=== PATIENT | female | born 1995 | race Caucasian/White ===

== ENCOUNTER 2016-11-11 22:53 | Emergency (ER) | payer MEDICAID, OTHER ==
--- NOTE | 2016-11-11 23:44 | EDM.PDOC ---
ED HPI GENERAL MEDICAL PROBLEM - General Chief Complaint: [employer] Problem Stated Complaint: ?labor Time Seen by Provider: 11/11/16 23:38 Source of Information: Reports: Patient History Limitations: Reports: No Limitations - History of Present Illness INITIAL COMMENTS - FREE TEXT/NARRATIVE: PT STATES SHE IS 8 MONTHS WITH DUE DATE OF AND DEVELOPED INTERMITTENT CRAMPING THAT LASTED FEW SECONDS EACH TIME. SEEN AT [facility] IN [place] THIS PAST SATURDAY. ALL PROGRESSING WELL AND NOT HIGH RISK. DENIES VAGINAL WATER OR BLEEDING, DYSURIA, H/O PRE-ECLAMPSIA, OR FEVER. 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 woke up at midnight with large amount vaginal bleeding without clots. Neurological History: Reports: Other (See Below) Other Neuro History: s/p craniotomy, March 2015, for stage 1 tumor Oncologic (Cancer) History: Reports: Brain - Past Surgical History Oncologic Surgical History: Reports: Other (See Below) Social & Family History - Family History Family Medical History: Noncontributory - Tobacco Use Smoking Status *Q: Never Smoker Second Hand Smoke Exposure: Yes - Recreational Drug Use Recreational Drug Use: No ED ROS GENERAL - Review of Systems Review Of Systems: ROS reveals no pertinent complaints other than HPI. Constitutional: Reports: No Symptoms HEENT: Reports: No Symptoms Respiratory: Reports: No Symptoms Cardiovascular: Reports: No Symptoms Endocrine: Reports: No Symptoms GI/Abdominal: Reports: Other (ABD CRAMPING) : Reports: No Symptoms Musculoskeletal: Reports: No Symptoms Skin: Reports: No Symptoms Neurological: Reports: No Symptoms Psychiatric: Reports: No Symptoms Hematologic/Lymphatic: Reports: No Symptoms Immunologic: Reports: No Symptoms ED EXAM - Physical Exam Exam: See Below Exam Limited By: No Limitations General Appearance: Alert, WD/WN, No Apparent Distress Throat/Mouth: Normal Inspection, Normal Oropharynx, No Airway Compromise Respiratory/Chest: No Respiratory Distress, Lungs Clear, Normal Breath Sounds, No Accessory Muscle Use, Chest Non-Tender Cardiovascular: Regular Rate, Rhythm, No Murmur GI/Abdominal: Gravid Uterus (Female) Exam: Other (DEFERRED) Heart Tones: Present Heart Tones per Min: 130 Extremities: Normal Inspection, No Pedal Edema Neurological: Alert, Oriented, Normal Cognition Psychiatric: Normal Affect, Normal Mood Skin Exam: Warm, Dry, Intact, Normal Color, No Rash Lymphatic: No Adenopathy Course - Re-Assessments/Exams Free Text/Narrative Re-Assessment/Exam: 11/11/16 23:45 PT AFEBRILE, NONTOXIC APPEARING, VSS, FATHER AND GRANDMOTHER AT BEDSIDE. HR 130'S. NO CONTRACTIONS WHILE IN ER Departure - Departure Time of Disposition: 23:46 Disposition: Home, Self-Care 01 Condition: Good Clinical Impression: Haiel Rebollar' contraction Qualifiers: Weeks of gestation: 38 weeks Qualified Code(s): Z3A.38 - 38 weeks gestation of - Discharge Information Instructions: Haile Rebollar Contractions, Abdominal Pain During Forms: ED Department Discharge Additional Instructions: FOLLOW UP WITH [employer] SCHEDULED. RETURN TO ER SOONER IF SYMPTOMS CONTINUE - Assessment/Plan Assessment:: Plan: F/U WITH [employer] SCHEDULED
[2016-11-11 23:51] VITALS: BP 159/100
== END 2016-11-11 23:55 | disposition home or self-care (01) ==
LOC: KA.ED 22:53
DX: O47.1 False labor at or after 37 completed weeks of gestation (principal); K21.9 Gastro-esophageal reflux disease without esophagitis; Z3A.38 38 weeks gestation of pregnancy; Z91.040 Latex allergy status
CPT/HCPCS: 99284

== ENCOUNTER 2017-11-23 19:00 | Emergency (ER) | payer MEDICAID ==
[2017-11-23] MEDS ORDERED: Ketorolac 60 MG/2 ML SDV IM ONE (19:25)
--- NOTE | 2017-11-23 19:32 | EDM.PDOC ---
ED HPI GENERAL MEDICAL PROBLEM - General Chief Complaint: Back Pain or Injury Stated Complaint: BACKPAIN Time Seen by Provider: 11/23/17 19:06 Source of Information: Reports: Patient History Limitations: Reports: No Limitations - History of Present Illness INITIAL COMMENTS - FREE TEXT/NARRATIVE: Patient is a 22-year-old female who presents to the emergency department this evening with a complaint of left rib pain. Patient states that she accidentally walked into a counter 2 days ago and struck her left ribs. Patient states that pain has progressively worsened. Patient is taking Tylenol and using ice without relief. Patient denies any other injury, chest pain, abdominal pain, fever, shortness of breath, nausea, vomiting, diarrhea, dysuria , or suspicion of . 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 woke up at midnight with large amount vaginal bleeding without clots. Neurological History: Reports: Other (See Below) Other Neuro History: s/p craniotomy, March 2015, for stage 1 tumor Oncologic (Cancer) History: Reports: Brain - Past Surgical History Oncologic Surgical History: Reports: Other (See Below) Social & Family History - Family History Family Medical History: Noncontributory - Caffeine Use Caffeine Use: Reports: None Review of Systems - Review of Systems Review Of Systems: ROS reveals no pertinent complaints other than HPI. Constitutional: Reports: No Symptoms Eyes: Reports: No Symptoms Ears: Reports: No Symptoms Nose: Reports: No Symptoms Mouth/Throat: Reports: No Symptoms Respiratory: Reports: No Symptoms Cardiovascular: Reports: No Symptoms GI/Abdominal: Reports: No Symptoms Genitourinary: Reports: No Symptoms Musculoskeletal: Reports: Other (Left axilla rib pain). Denies: Shoulder Pain, Arm Pain Skin: Reports: No Symptoms Neurological: Reports: No Symptoms Psychiatric: Reports: No Symptoms ED EXAM, GENERAL - Physical Exam Exam: See Below Exam Limited By: No Limitations General Appearance: Alert, WD/WN, Mild Distress Throat/Mouth: Normal Inspection, Normal Oropharynx, No Airway Compromise Head: Atraumatic, Normocephalic Respiratory/Chest: No Respiratory Distress, Lungs Clear, Normal Breath Sounds, No Accessory Muscle Use, Other (Left chest axilla region, tender with deep breaths. No edema, ecchymosis, erythema, or flail chest noted.) Cardiovascular: Regular Rate, Rhythm, No Murmur GI/Abdominal: Normal Bowel Sounds, Soft, Non-Tender Back Exam: Normal Inspection. No: CVA Tenderness (L), CVA Tenderness (R) Extremities: Normal Inspection Neurological: Alert, Oriented, Normal Cognition Psychiatric: Normal Affect, Normal Mood Skin Exam: Warm, Dry, Intact, Normal Color, No Rash Course - Vital Signs Last Recorded V/S: Last Vital Signs Temp 101.2 F H 11/23/17 19:14 Pulse 111 H 11/23/17 19:14 Resp 16 11/23/17 19:14 BP 144/93 H 11/23/17 19:14 Pulse Ox 100 11/23/17 19:14 - Orders/Labs/Meds Orders: Active Orders 24 hr Category Date Time Status Ribs 2V w Chest Lt [CR] Stat Exams 11/23/17 19:25 Ordered Meds: Medications Discontinued Medications Generic Name Dose Route Start Last Admin Trade Name Naviq PRN Reason Stop Dose Admin Ketorolac Tromethamine 60 mg 11/23/17 19:25 Toradol IM 11/23/17 19:26 ONETIME ONE - Radiology Interpretation Free Text/Narrative:: Chest x-ray and left ribs negative per radiology - Re-Assessments/Exams Free Text/Narrative Re-Assessment/Exam: 11/23/17 21:01 Patient nontoxic appearing, vital signs stable, pain mostly relieved. Patient will follow-up with PCP in 2 days Departure - Departure Time of Disposition: 21:01 Disposition: Home, Self-Care 01 Condition: Good Clinical Impression: Contusion of rib on left side Qualifiers: Encounter type: initial encounter Qualified Code(s): S20.212A - Contusion of left front wall of thorax, initial encounter - Discharge Information Instructions: Chest Contusion, Adult, [id number] Referrals: PCP,Unknown [Primary Care Provider] - Additional Instructions: Follow-up with PCP in 2 days. Return sooner department sooner if symptoms continue or worsen. - My Orders Last 24 Hours: My Active Orders 11/23/17 19:25 Ribs 2V w Chest Lt [CR] Stat - Assessment/Plan Last 24 Hours: My Active Orders 11/23/17 19:25 Ribs 2V w Chest Lt [CR] Stat Assessment:: Costochondritis Plan: Follow-up with PCP
[2017-11-23] MEDS ORDERED: Diazepam 5 MG Tab PO ONE ×2 (19:53→21:00)
[2017-11-23] MEDS ORDERED: Diazepam 5 MG Tab ONE (21:10)
[2017-11-23 21:22] VITALS: BP 112/75
== END 2017-11-23 21:22 | disposition home or self-care (01) ==
LOC: KA.ED 19:00
DX: S20.212A Contusion of left front wall of thorax, initial encounter (principal); M94.0 Chondrocostal junction syndrome [Tietze]; Z91.040 Latex allergy status; Z88.5 Allergy status to narcotic agent; W22.8XXA Striking against or struck by other objects, initial encounter
CPT/HCPCS: 71101-LT; 96372; 99283; A9270-GY; J1885

== ENCOUNTER 2019-01-24 16:42 | Emergency (ER) | payer SELFPAY ==
[2019-01-24] MEDS ORDERED: Ondansetron 4 MG/2 ML SDV IVPUSH ONE (16:47)
[2019-01-24] MEDS ORDERED: Sodium Chloride 0.9% 10 ML Syringe FLUSH PRN (16:48)
[2019-01-24] MEDS ORDERED: Sodium Chloride 0.9% 1,000 ML IV ONE (16:48)
[2019-01-24 17:18] VITALS: BP 139/65; PULSE 78
--- NOTE | 2019-01-24 17:23 | EDM.PDOC ---
ED HPI GENERAL MEDICAL PROBLEM - General Chief Complaint: Gastrointestinal Problem Stated Complaint: vomiting, back pain, 31 weeks Time Seen by Provider: 01/24/19 17:17 Source of Information: Reports: Patient History Limitations: Reports: No Limitations - History of Present Illness INITIAL COMMENTS - FREE TEXT/NARRATIVE: Patient is a 23-year-old female who presents to the emergency department this afternoon with a complaint of nausea, vomiting, diarrhea and abdominal pain. States she is 30 weeks . The abdominal pain is described as a pulling sensation on the right middle to lower abdomen. Patient states that the abdominal discomfort has been on and off for a couple days, and approximately 2 hours prior to presentation she developed nausea and vomiting. Patient is concerned so presented to the emergency department. Patient denies fever, vaginal bleeding or discharge, trauma, chest pain, shortness of breath, blood in stool or vomitus. Onset: Gradual Onset Date: 01/23/19 Duration: Day(s):, Waxing/Waning Location: Reports: Abdomen Quality: Reports: Other (Pulling) Improves with: Reports: None Worsens with: Reports: None Context: Denies: Activity, Exercise, Lifting, Trauma Associated Symptoms: Reports: Nausea/Vomiting. Denies: Chest Pain, Fever/Chills , Headaches, Shortness of Breath back Pain Score (Numeric/FACES): 3 - Related Data Allergies Allergy/AdvReac Type Severity Reaction Status Date / Time hydrocodone Allergy Hives Verified 01/24/19 17:20 latex Allergy Hives Verified 01/24/19 17:20 Home Meds: Home Meds Aspirin [Halfprin] 324 mg PO DAILY 01/24/19 [History] Pnv No.95/Ferrous Fum/Folic AC [ Caplet] 2 each PO DAILY 01/24/19 [ History] Past Medical History HEENT History: Reports: None Gastrointestinal History: Reports: GERD Genitourinary History: Reports: None [employer]GER [employer] History: Reports: Other [employer] History: currently 6-7 weeks long. woke up at midnight with large amount vaginal bleeding without clots. Neurological History: Reports: Other (See Below) Other Neuro History: s/p craniotomy, March 2015, for stage 1 tumor Oncologic (Cancer) History: Reports: Brain - Infectious Disease History Infectious Disease History: Reports: Chicken Pox - Past Surgical History Oncologic Surgical History: Reports: Other (See Below) Social & Family History - Family History Family Medical History: Noncontributory - Caffeine Use Caffeine Use: Reports: None ED ROS GENERAL - Review of Systems Review Of Systems: ROS reveals no pertinent complaints other than HPI. Constitutional: Reports: No Symptoms HEENT: Reports: No Symptoms Respiratory: Reports: No Symptoms Cardiovascular: Reports: No Symptoms Endocrine: Reports: No Symptoms GI/Abdominal: Reports: Abdominal Pain, Diarrhea, Nausea, Vomiting. Denies: Black Stool, Bloody Stool, Hematemesis, Melena, Mucous in Stool : Reports: Frequency Musculoskeletal: Reports: No Symptoms Skin: Reports: No Symptoms Neurological: Reports: No Symptoms Psychiatric: Reports: No Symptoms Hematologic/Lymphatic: Reports: No Symptoms Immunologic: Reports: No Symptoms ED EXAM - Physical Exam Exam: See Below Exam Limited By: No Limitations General Appearance: Alert, WD/WN, No Apparent Distress Nose: Normal Inspection, No Blood Throat/Mouth: Normal Inspection, Normal Oropharynx, No Airway Compromise Head: Atraumatic, Normocephalic Neck: Normal Inspection Respiratory/Chest: No Respiratory Distress, Lungs Clear, Normal Breath Sounds, No Accessory Muscle Use, Chest Non-Tender Cardiovascular: Regular Rate, Rhythm, No Murmur GI/Abdominal Exam: Normal Bowel Sounds, Other ( abdomen 30 weeks /tender right round ligament pain) Heart Tones: Present Heart Tones per Min: 140 Back Exam: Normal Inspection. No: CVA Tenderness (L), CVA Tenderness (R) Extremities: Normal Inspection, No Pedal Edema Neurological: Alert, Oriented, Normal Cognition Psychiatric: Normal Affect, Normal Mood Skin Exam: Warm, Dry, Intact, Normal Color, No Rash Lymphatic: No Adenopathy Course - Vital Signs Last Recorded V/S: Last Vital Signs Temp 97 F 01/24/19 16:42 Pulse 78 01/24/19 16:42 Resp 16 01/24/19 16:42 BP 139/65 01/24/19 16:42 Pulse Ox 98 01/24/19 16:42 - Orders/Labs/Meds Orders: Active Orders 24 hr Category Date Time Status Heart Tones [ Heart Rate] [RC] Click to Edit Care 01/24/19 16:49 Active Peripheral IV Care [RC] . DIRECTED Care 01/24/19 16:48 Active Sodium Chloride 0.9% [Normal Saline] 1,000 ml Med 01/24/19 16:48 Active IV .BOLUS Sodium Chloride 0.9% [Saline Flush] Med 01/24/19 16:48 Active 10 ml FLUSH Q8HR PRN Peripheral IV Insertion Adult [OM.PC] Routine Oth 01/24/19 16:48 Ordered Medication Orders Sodium Chloride (Normal Saline) 1,000 mls @ 999 mls/hr IV .BOLUS ONE Stop: 01/24/19 17:48 Last Admin: 01/24/19 16:54 Dose: 999 mls/hr Sodium Chloride (Saline Flush) 10 ml FLUSH Q8HR PRN PRN Reason: keep vein open Last Admin: 01/24/19 16:55 Dose: 10 ml Labs: Laboratory Tests 01/24/19 01/24/19 01/24/19 Range/Units 16:49 16:55 16:55 WBC 14.57 H (5.00-10.00) 10^3/uL RBC 4.67 (3.80-5.50) 10^6/uL Hgb 13.5 (12.0-16.0) g/dL Hct 38.7 (37.0-47.0) % MCV 82.9 (82.0-92.0) fL MCH 28.9 (27.0-31.0) pg MCHC 34.9 (32.0-36.0) g/dL RDW 12.6 (11.5-14.5) % Plt Count 245 (150-400) 10^3/uL MPV 10.2 (7.4-10.4) fL Immature Gran % (Auto) 0.8 (0.0-5.0) % Neut % (Auto) 80.7 H (50.0-70.0) % Lymph % (Auto) 12.4 L (20.0-40.0) % Branch % (Auto) 5.4 (2.0-8.0) % Eos % (Auto) 0.5 L (1.0-3.0) % Baso % (Auto) 0.2 (0.0-1.0) % Immature Gran # (Auto) 0.12 (0.00-0.50) 10^3/uL Neut # (Auto) 11.75 H (2.50-7.00) 10^3/uL Lymph # (Auto) 1.80 (1.00-4.00) 10^3/uL Branch # (Auto) 0.79 (0.10-0.80) 10^3/uL Eos # (Auto) 0.08 L (0.10-0.30) 10^3/uL Baso # (Auto) 0.03 (0.00-0.10) 10^3/uL Sodium 136 (136-145) mmol/L Potassium 3.2 L (3.3-5.3) mmol/L Chloride 103 (98-115) mmol/L Carbon Dioxide 21.1 (21.0-32.0) mmol/L Anion Gap 15.1 H (5-15) mmol/L BUN 8 (6-25) mg/dL Creatinine 0.41 L (0.51-1.17) mg/dL Est Cr Clr Drug Dosing 153.28 mL/min Estimated GFR (MDRD) > 60 mL/min Glucose 84 (75 - 99) mg/dL Calcium 8.6 L (8.7-10.3) mg/dL Total Bilirubin 0.4 (0.2-1.0) mg/dL AST 13 L (15-37) U/L ALT 17 (12-78) U/L Alkaline Phosphatase 129 H (46-116) IU/L Total Protein 6.7 (6.4-8.2) g/dL Albumin 2.47 L (3.00-4.80) g/dL Specimen Type . Urine Color Yellow (YELLOW) Urine Appearance Clear (CLEAR) Urine pH 5.5 (5.0-9.0) Ur Specific [place] >= 1.030 (1.005-1.030) Urine Protein 30 H (NEGATIVE) mg/dL Urine Glucose (UA) Negative (NEGATIVE) mg/dL Urine Ketones 40 H (NEGATIVE) mg/dL Urine Occult Blood Negative (NEGATIVE) Urine Nitrite Negative (NEGATIVE) Urine Bilirubin Small H (NEGATIVE) Urine Urobilinogen 0.2 (0.2-1.0) E.U./dL Ur Leukocyte Esterase Negative (NEGATIVE) Urine RBC 0-5 (0-5) /HPF Urine WBC 0-5 (0-5) /HPF Ur Epithelial Cells Many H /LPF Amorphous Sediment Few (0/HPF) /HPF Urine Bacteria Moderate H (NONE TO FEW) /HPF Meds: Medications Generic Name Dose Route Start Last Admin Trade Name Ivonne PRN Reason Stop Dose Admin Sodium Chloride 1,000 mls @ 999 mls/hr 01/24/19 16:48 01/24/19 16:54 Normal Saline IV 01/24/19 17:48 999 mls/hr .BOLUS ONE Administration Sodium Chloride 10 ml 01/24/19 16:48 01/24/19 16:55 Saline Flush FLUSH 10 ml Q8HR PRN Administration keep vein open Discontinued Medications Generic Name Dose Route Start Last Admin Trade Name Ivonne PRN Reason Stop Dose Admin Ondansetron HCl 4 mg 01/24/19 16:47 01/24/19 17:00 Zofran IVPUSH 01/24/19 16:48 4 mg ONETIME ONE Administration Ondansetron HCl 20 mg 01/24/19 17:34 Zofran Odt PO 01/24/19 17:35 ONETIME ONE - Re-Assessments/Exams Free Text/Narrative Re-Assessment/Exam: 01/24/19 17:35 Patient afebrile, vital signs stable, taking by mouth fluids, nontoxic appearing. 4 mg Zofran IV and 1 L normal saline given in ER. Nausea resolved. Explained to the patient, abdominal discomfort due to round ligament. Patient will follow-up with [employer] as scheduled next week Departure - Departure Time of Disposition: 17:36 Disposition: Home, Self-Care 01 Condition: Good Clinical Impression: Abdominal pain during in third trimester, Round ligament pain, Nausea , vomiting and diarrhea Qualifiers: Weeks of gestation: 38 weeks Qualified Code(s): Z3A.38 - 38 weeks gestation of - Discharge Information Instructions: Round Ligament Pain, Abdominal Pain During , Easy-to- Read, Nausea and Vomiting, Adult, [id number], Diarrhea, Adult, [id number] Forms: ED Department Discharge Additional Instructions: Follow-up as scheduled with [employer]. Return to emergency department sooner if symptoms continue or worsen. Take medication as directed - My Orders Last 24 Hours: My Active Orders 01/24/19 16:48 Peripheral IV Care [RC] . DIRECTED Sodium Chloride 0.9% [Normal Saline] 1,000 ml IV .BOLUS Sodium Chloride 0.9% [Saline Flush] 10 ml FLUSH Q8HR PRN Peripheral IV Insertion Adult [OM.PC] Routine 01/24/19 16:49 Heart Tones [ Heart Rate] [RC] Click to Edit - Assessment/Plan Last 24 Hours: My Active Orders 01/24/19 16:48 Peripheral IV Care [RC] . DIRECTED Sodium Chloride 0.9% [Normal Saline] 1,000 ml IV .BOLUS Sodium Chloride 0.9% [Saline Flush] 10 ml FLUSH Q8HR PRN Peripheral IV Insertion Adult [OM.PC] Routine 01/24/19 16:49 Heart Tones [ Heart Rate] [RC] Click to Edit Assessment:: Nausea, vomiting Plan: Follow-up as scheduled with [employer]
[2019-01-24 17:29] LABS: ANION GAP 15.1 mmol/L (5-15); CHLORIDE,CL 103 mmol/L (98-115); SODIUM,NA 136 mmol/L (136-145)
[2019-01-24] MEDS ORDERED: Ondansetron 4 MG Tab.DIS PO ONE (17:34)
== END 2019-01-24 18:04 | disposition home or self-care (01) ==
LOC: KA.ED 16:42
DX: O21.2 Late vomiting of pregnancy (principal); O26.893 Other specified pregnancy related conditions, third trimester; R10.2 Pelvic and perineal pain; R19.7 Diarrhea, unspecified; Z91.040 Latex allergy status; Z88.5 Allergy status to narcotic agent; Z79.82 Long term (current) use of aspirin; Z79.899 Other long term (current) drug therapy; Z3A.30 30 weeks gestation of pregnancy
CPT/HCPCS: 36415; 80053; 81001; 85025; 96361; 96374; 99284; A9270; J2405; J7030

== ENCOUNTER 2022-11-05 18:52 | Emergency (ER) | payer SELFPAY ==
[2022-11-05 19:04] VITALS: BP 138/88; PULSE 82
[2022-11-05] MEDS: Ciprofloxacin 0.3% Ophth Soln 5 ML Bottle EYEBOTH SCH (19:30)
== END 2022-11-05 19:40 | disposition home or self-care (01) ==
LOC: KA.ED 18:52
DX: H10.33 Unspecified acute conjunctivitis, bilateral (principal); I10 Essential (primary) hypertension; K21.9 Gastro-esophageal reflux disease without esophagitis; Z88.5 Allergy status to narcotic agent; Z91.040 Latex allergy status; Z79.82 Long term (current) use of aspirin
CPT/HCPCS: 99282; 99283; A9270-GY

== ENCOUNTER 2023-10-03 16:35 | Emergency (ER) | payer BC ==
[2023-10-03] MEDS: Amoxicillin/Clavulanate K 875-125 MG Tab PO ONE (18:23)
[2023-10-03 18:34] VITALS: BP 152/102; PULSE 78
== END 2023-10-03 18:25 | disposition home or self-care (01) ==
LOC: KA.ED 16:35
DX: K04.7 Periapical abscess without sinus (principal); J02.0 Streptococcal pharyngitis; R59.1 Generalized enlarged lymph nodes; I10 Essential (primary) hypertension; Z88.5 Allergy status to narcotic agent; Z91.040 Latex allergy status; Z79.82 Long term (current) use of aspirin; Z79.899 Other long term (current) drug therapy
CPT/HCPCS: 87651-QW; 99284; A9270-GY